=== PATIENT | female | born 2000 | race Caucasian/White ===

== ENCOUNTER 2024-08-01 07:34 | Emergency (ER) | payer OTHER ==
[~2024-08-01] VITALS: Ht 162.6 cm; Wt 72.9 kg
[2024-08-01 07:38] VITALS: BP 115/76; TEMP 97.4; O2SAT 100
== END 2024-08-01 09:25 | disposition home or self-care (01) ==
LOC: M ED 07:34
DX: M79.661 Pain in right lower leg (principal); M79.662 Pain in left lower leg

== ENCOUNTER → 2024-08-01 | Outpatient (CLI) | payer OTHER | LOC: M RAD 09:46 | PROVIDERS: ATTEND Nurse Practitioner Family | DX: M79.661 Pain in right lower leg (principal); M79.662 Pain in left lower leg ==

== ENCOUNTER → 2025-02-19 | Outpatient (CLI) | payer OTHER ==
[2025-02-19 15:40] LABS: COMPLEMENT C4 53.9 MG/DL (12-36)
[2025-02-19 15:44] LABS: IMMUNOGLOBULIN E 82.4 IU/ML (0-378)
[2025-02-20 10:00] LABS: ALPHA 1 ANTITRYPSIN 145 mg/dL (83-199)
[2025-02-20 13:47] LABS: BERMUDA GRASS IGE 1.91 kU/L (<0.10); BIRCH IGE 2.46 kU/L (<0.10); COMMON RAGWEED SHORT IGE 0.29 kU/L (<0.10); D001 IGE D PTERONYSSINUS 0.46 kU/L (<0.10); D002-IGE D FARINAE 0.49 kU/L (<0.10); E001-IGE CAT DANDER < 0.10 kU/L (<0.10); E003-IGE HORSE EPITHELIA/DAND < 0.10 kU/L (<0.10); E004-IGE COW DANDER < 0.10 kU/L (<0.10); E005-IGE DOG DANDER < 0.10 kU/L (<0.10); ELM IGE 0.64 kU/L (<0.10); I006 IGE COCKROACH 0.12 kU/L (<0.10); IMMUNOGLOBULIN E FOR ALLERGENS 102 kU/L (<OR=114); M006 IGE ALTERNIA ALTERNATA 7.04 kU/L (<0.10); M1-PENICILLIUM NOTATUM 1.34 kU/L (<0.10); MOUSE URINE IGE < 0.10 kU/L (<0.10); MUGWORT IGE 0.19 kU/L (<0.10); OAK IGE 3.58 kU/L (<0.10); ROUGH PIGWEED IGE < 0.10 kU/L (<0.10); SHEEP SORREL IGE < 0.10 kU/L (<0.10); T001-IGE MAPLE BOX ELDER 0.22 kU/L (<0.10); T006-IGE MOUNTAIN CEDAR 0.23 kU/L (<0.10); T014 COTTONWOOD IGE 0.14 kU/L (<0.10); TIMOTHY GRASS IGE 6.72 kU/L (<0.10); WALNUT TREE IGE 0.56 kU/L (<0.10); WHITE ASH IGE 0.17 kU/L (<0.10); WHITE MULBERRY IGE < 0.10 kU/L (<0.10)
== END ==
LOC: M LAB 11:16
PROVIDERS: ATTEND Allergy & Immunology
DX: H10.45 Other chronic allergic conjunctivitis (principal); R05.9 Cough, unspecified; J30.1 Allergic rhinitis due to pollen; J32.0 Chronic maxillary sinusitis; L50.8 Other urticaria